=== PATIENT | female | born 2000 | race Caucasian/White ===

== ENCOUNTER 2018-12-05 12:25 | Emergency (ER) | payer OTHER ==
[~2018-12-05] VITALS: Ht 157.5 cm; Wt 66.7 kg
[2018-12-05 12:49] VITALS: BP 97/58
--- NOTE | 2018-12-05 12:53 | NUR ---
PT AMBULATED TO ER BED 01
--- NOTE | 2018-12-05 13:30 | NUR ---
C/O COUGH, SORE THROAT, LASSITER& RUNNY NOSE X 1 WEEK. PT DENIES N/V/D; SKIN IS INTACT, PINK/WARM/DRY; AAOX4, PERRL, WITH EVEN AND STEADY GAIT; LUNGS CLEAR BL, BREATHING UNLABORED; HR EVEN AND REGULAR, BL PERIPHERAL PULSES PRESENT; BS ACTIVE X4, NO TENDERNESS TO PALPATION. PT DENIES ANY FEVER, CP, SOB, OR COUGH AT THIS TIME; PT STATES 0/10 PAIN AT THIS TIME; VSS; PATIENT POSITIONED FOR COMFORT; HOB ELEVATED; BEDRAILS UP X2; BED DOWN.
[2018-12-05] MEDS ORDERED: DEXAMETHASONE 10 MG/ML VIAL IM ONE (13:50)
[2018-12-05] MEDS ORDERED: KETOROLAC 15 MG/ML VIAL IM ONE (13:50)
--- NOTE | 2018-12-05 14:12 | NUR ---
STREP A SCREEN OBTAINED
[2018-12-05] MEDS ORDERED: KETOROLAC 15 MG/ML VIAL ONE (14:45)
--- NOTE | 2018-12-05 15:18 | NUR ---
MEDICATION ADMINISTERED ORDERED. VSS.
[2018-12-05 15:33] VITALS: BP 112/62
--- NOTE | 2018-12-05 15:35 | NUR ---
Patient discharged with v/s stable. Written and verbal after care instructions given and explained. Patient verbalized understanding. Ambulatory with steady gait. All questions addressed prior to discharge. Advised to follow up with PMD. Pt waiting for daughter to be discharge as well.
== END 2018-12-05 15:35 | disposition home or self-care (01) ==
LOC: MED 12:25
DX: J02.8 Acute pharyngitis due to other specified organisms (principal); B97.89 Other viral agents as the cause of diseases classified elsewhere; J06.9 Acute upper respiratory infection, unspecified
CPT/HCPCS: 87081; 96372; 99283; J1100; J1885